=== PATIENT | male | born 1960 | race Caucasian/White ===

== ENCOUNTER 2020-04-21 16:46 | Emergency (ER) | payer OTHER ==
[2020-04-21] MEDS ORDERED: Acetaminophen 500 MG Tab PO ONE (18:42)
[2020-04-21] MEDS ORDERED: Aspirin 81 MG Tab.Chew PO ONE (18:43)
--- NOTE | 2020-04-21 19:12 | EDM.PDOC ---
ED HPI GENERAL MEDICAL PROBLEM - General Chief Complaint: Respiratory Problem Stated Complaint: MEDICAL Time Seen by Provider: 04/21/20 18:45 Source of Information: Reports: Patient, RN. Denies: Old Records History Limitations: Reports: Other (no old records) - History of Present Illness INITIAL COMMENTS - FREE TEXT/NARRATIVE: 59 yo male on methotrexate for psoriatic arthritis presents with PINA and a dry cough with deep inspiration of recent onset. Has known for a few days now through Dr. Hall's office that he has Covid-19 as does his . He has been running a fever for most of this time, his last acetaminophen was this morning. He does not need a work excuse. Onset: Gradual Onset Date: 04/13/20 Duration: Week(s): (1+), Getting Worse Location: Reports: Chest (SOB) Quality: Reports: Other (no pain) Severity: Mild Improves with: Reports: Rest Worsens with: Reports: Movement Context: Reports: Other (See HPI) Associated Symptoms: Reports: Cough, Fever/Chills, Malaise, Shortness of Breath. 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) - Related Data Allergies Allergy/AdvReac Type Severity Reaction Status Date / Time acetaminophen [From Lortab] Allergy Other Verified 04/21/20 17:54 codeine Allergy Rash Verified 04/21/20 17:54 [From Tylenol-Codeine] hydrocodone [From Lortab] Allergy Other Verified 04/21/20 17:54 Home Meds: Home Meds Clobetasol [Clobetasol 0.05%] 1 dose TOP BID 04/21/20 [History] Folic Acid 2 tab PO DAILY 04/21/20 [History] Meloxicam 15 mg PO DAILY 04/21/20 [History] Methotrexate 2.5 mg PO Q7D 04/21/20 [History] cephALEXin [Cephalexin] 500 mg PO DAILY 04/21/20 [History] traMADol [Ultram] 50 mg PO Q6HR PRN 04/21/20 [History] Past Medical History HEENT History: Reports: Impaired Vision Respiratory History: Reports: Other (See Below) Other Respiratory History: scare tissue in lungs hard to breath at times Musculoskeletal History: Reports: None Endocrine/Metabolic History: Reports: Obesity/BMI 30+ Dermatologic History: Reports: Psoriasis - Infectious Disease History Infectious Disease History: Reports: Chicken Pox, Influenza, Novel Coronavirus - Past Surgical History Head Surgeries/Procedures: Reports: None HEENT Surgical History: Reports: None Respiratory Surgical History: Reports: None Musculoskeletal Surgical History: Reports: Arthroscopic Knee, Hip Replacement, Knee Replacement, Other (See Below) Other Musculoskeletal Surgeries/Procedures:: left knee surgery Dermatological Surgical History: Reports: Skin Graft Social & Family History - Tobacco Use Tobacco Use Status *Q: Never Tobacco User Second Hand Smoke Exposure: No - Caffeine Use Caffeine Use: Reports: Soda - Alcohol Use Days Per Week of Alcohol Use: 1 Number of Drinks Per Day: 1 Total Drinks Per Week: 1 - Recreational Drug Use Recreational Drug Use: No ED ROS GENERAL - Review of Systems Review Of Systems: See Below Constitutional: Reports: Fever, Malaise HEENT: Reports: No Symptoms Respiratory: Reports: Shortness of Breath, Cough (dry). Denies: Wheezing, Pleuritic Chest Pain, Sputum, Hemoptysis Cardiovascular: Reports: No Symptoms Endocrine: Reports: No Symptoms GI/Abdominal: Reports: No Symptoms : Reports: No Symptoms Musculoskeletal: Reports: No Symptoms Skin: Reports: No Symptoms Neurological: Reports: No Symptoms ED EXAM, GENERAL - Physical Exam Exam: See Below Exam Limited By: No Limitations General Appearance: Alert, WD/WN, No Apparent Distress Eye Exam: Bilateral Eye: PERRL Ears: Normal External Exam, Normal Canal, Hearing Grossly Normal Ear Exam: Bilateral Ear: Auricle Normal, Canal Normal Nose: Normal Inspection, No Blood Throat/Mouth: Normal Inspection, Normal Lips, Normal Oropharynx, Normal Voice, No Airway Compromise Head: Atraumatic, Normocephalic Neck: Normal Inspection Respiratory/Chest: No Respiratory Distress, No Accessory Muscle Use, Crackles (very distant, fine crackles present) Cardiovascular: Regular Rate, Rhythm, No Edema GI/Abdominal: Normal Bowel Sounds, Soft, Non-Tender, No Distention Back Exam: Normal Inspection. No: CVA Tenderness (R), CVA Tenderness (L) Extremities: Normal Range of Motion, Non-Tender, No Pedal Edema. No: Normal Inspection Neurological: Alert, Oriented, CN II-XII Intact, Normal Cognition Psychiatric: Normal Affect, Normal Mood Skin Exam: Warm, Dry, Intact, Normal Color, No Rash Course - Vital Signs Last Recorded V/S: Last Vital Signs Temp 38.3 C H 04/21/20 17:38 Pulse 80 04/21/20 18:26 Resp 15 04/21/20 18:26 BP 121/67 04/21/20 18:26 Pulse Ox 96 04/21/20 18:26 - Orders/Labs/Meds Orders: Active Orders 24 hr Category Date Time Status Chest 1V Frontal [CR] Stat Exams 04/21/20 18:10 Taken Labs: Laboratory Tests 04/21/20 04/21/20 04/21/20 Range/Units 18:15 18:15 18:15 WBC 3.5 L (4.5-11.0) K/uL RBC 4.65 (4.30-5.90) M/uL Hgb 14.2 (12.0-15.0) g/dL Hct 42.7 (40.0-54.0) % MCV 92 (80-98) fL MCH 31 (27-31) pg MCHC 33 (32-36) % Plt Count 99 L (150-400) K/uL Neut % (Auto) 65 (36-66) % Lymph % (Auto) 22 L (24-44) % [place] % (Auto) 9 H (2-6) % Eos % (Auto) 5 H (2-4) % Baso % (Auto) 0 (0-1) % D-Dimer, Quantitative 610 H (0.0-400.0) ng/mL Sodium 136 L (140-148) mmol/L Potassium 3.9 (3.6-5.2) mmol/L Chloride 101 (100-108) mmol/L Carbon Dioxide 26 (21-32) mmol/L Anion Gap 12.9 (5.0-14.0) mmol/L BUN 12 (7-18) mg/dL Creatinine 1.3 (0.8-1.3) mg/dL Est Cr Clr Drug Dosing 64.73 mL/min Estimated GFR (MDRD) 57 L (>60) Glucose 105 (74-106) mg/dL Calcium 8.2 L (8.5-10.1) mg/dL Total Bilirubin 0.5 (0.2-1.0) mg/dL AST 43 H (15-37) U/L ALT 40 (12-78) U/L Alkaline Phosphatase 78 (46-116) U/L C-Reactive Protein 3.15 H (0.0-0.3) mg/dL Total Protein 7.2 (6.4-8.2) g/dL Albumin 3.5 (3.4-5.0) g/dL Globulin 3.7 H (2.3-3.5) g/dL Albumin/Globulin Ratio 1.0 L (1.2-2.2) Meds: Medications Discontinued Medications Generic Name Dose Route Start Last Admin Trade Name Martina PRN Reason Stop Dose Admin Acetaminophen 1,000 mg 04/21/20 18:42 04/21/20 18:51 Tylenol Extra Strength PO 04/21/20 18:43 1,000 mg ONETIME ONE Administration Aspirin 324 mg 04/21/20 18:43 04/21/20 18:50 Aspirin PO 04/21/20 18:44 324 mg ONETIME ONE Administration Departure - Departure Time of Disposition: 19:12 Disposition: Home, Self-Care 01 Condition: Fair Clinical Impression: COVID-19, PINA (dyspnea on exertion) - Discharge Information *PRESCRIPTION DRUG MONITORING PROGRAM REVIEWED*: Not Applicable *COPY OF PRESCRIPTION DRUG MONITORING REPORT IN PATIENT CHARO: Not Applicable Instructions: COVID-19 Frequently Asked Questions, Prevent the Spread of COVID- 19 if You Are Sick - [facility] [place] Referrals: PCP,None [Primary Care Provider] - Forms: ED Department Discharge Additional Instructions: Take about 4000 IU of vitamin D daily. Take Zinc about 25 mg daily or 50 mg every other day. Take an aspirin tablet daily with food. Hold your meloxicam while ill and substitute acetaminophen 1000 mg every 6 hrs for fever and pain control. Stay in touch with Dr. Hall regarding your progress. Drink enough fluids so your urine is very light yellow in color. Continue to quarantine to prevent the spread of this illness. Sepsis Event Note (ED) - Evaluation Sepsis Screening Result: No Definite Risk - Focused Exam Vital Signs: Vital Signs Temp Pulse Resp BP Pulse Ox 04/21/20 18:26 80 15 121/67 96 04/21/20 17:56 81 20 118/64 96 04/21/20 17:38 38.3 C H 84 18 132/68 95
--- NOTE | 2020-04-22 09:20 | CR ---
CHEST: Portable 04/21/2020 at 6:30 PM CLINICAL HISTORY:Covid 19 COMPARISON:None FINDINGS: The heart size, pulmonary vascularity and hilar structures are normal. There is some faint patchy density in the left lung base. This may represents minimal infiltrate or patchy atelectasis IMPRESSION: Minimal left lung base density may represent some minimal patchy atelectasis or infiltrate
== END 2020-04-21 19:36 | disposition home or self-care (01) ==
LOC: JP.ED 16:46
DX: U07.1 COVID-19 (principal); E66.9 Obesity, unspecified; Z68.34 Body mass index [BMI] 34.0-34.9, adult; Z88.6 Allergy status to analgesic agent; Z88.5 Allergy status to narcotic agent
CPT/HCPCS: 36415; 71045; 80053; 85025; 85379; 86140; 99283; A9270

== ENCOUNTER 2020-04-26 05:06 | Emergency (ER) | payer OTHER ==
[2020-04-26] MEDS ORDERED: Dexamethasone 4 MG Tab PO STA (05:49)
--- NOTE | 2020-04-26 05:54 | EDM.PDOC ---
<OfficerAnders - Last Filed: 04/26/20 05:51> ED HPI GENERAL MEDICAL PROBLEM - General Chief Complaint: Respiratory Problem Stated Complaint: COVID Time Seen by Provider: 04/26/20 05:36 Source of Information: Reports: Patient, RN Notes Reviewed History Limitations: Reports: No Limitations - History of Present Illness INITIAL COMMENTS - FREE TEXT/NARRATIVE: 59-year-old gentleman presents emergency department a complaint of shortness of breath, he was diagnosed positive COVID-19 on April 16, he states over the last couple days he has been progressively getting worse with symptoms reported to the emergency department today for further evaluation found to be hypoxic. He does also describe some chest pressure, no nausea or vomiting no sputum production - Related Data Allergies Allergy/AdvReac Type Severity Reaction Status Date / Time acetaminophen [From Lortab] Allergy Other Verified 04/26/20 05:13 codeine Allergy Rash Verified 04/26/20 05:13 [From Tylenol-Codeine] hydrocodone [From Lortab] Allergy Other Verified 04/26/20 05:13 Home Meds: Home Meds Clobetasol [Clobetasol 0.05%] 1 dose TOP BID 04/21/20 [History] Folic Acid 2 tab PO DAILY 04/21/20 [History] Methotrexate 2.5 mg PO Q7D 04/21/20 [History] cephALEXin [Cephalexin] 500 mg PO DAILY 04/21/20 [History] traMADol [Ultram] 50 mg PO Q6HR PRN 04/21/20 [History] Acetaminophen [Tylenol] 2 tab PO Q6H 04/26/20 [History] Aspirin 1 tab PO DAILY 04/26/20 [History] Azithromycin 2 tab PO ASDIRECTED 04/26/20 [History] Past Medical History HEENT History: Reports: Impaired Vision Respiratory History: Reports: Other (See Below) Other Respiratory History: scare tissue in lungs hard to breath at times Endocrine/Metabolic History: Reports: Obesity/BMI 30+ Dermatologic History: Reports: Psoriasis - Infectious Disease History Infectious Disease History: Reports: Chicken Pox - Past Surgical History Head Surgeries/Procedures: Reports: None HEENT Surgical History: Reports: None Respiratory Surgical History: Reports: None Musculoskeletal Surgical History: Reports: Arthroscopic Knee, Hip Replacement, Knee Replacement, Other (See Below) Other Musculoskeletal Surgeries/Procedures:: left knee surgery Dermatological Surgical History: Reports: Skin Graft Social & Family History - Family History Family Medical History: Noncontributory - Tobacco Use Tobacco Use Status *Q: Never Tobacco User - Caffeine Use Caffeine Use: Reports: Soda - Recreational Drug Use Recreational Drug Use: No ED ROS GENERAL - Review of Systems Review Of Systems: See Below Constitutional: Reports: Fever, Chills, Weakness HEENT: Reports: No Symptoms Respiratory: Reports: Shortness of Breath. Denies: Wheezing, Sputum Cardiovascular: Reports: Chest Pain, Dyspnea on Exertion GI/Abdominal: Reports: No Symptoms : Reports: No Symptoms ED EXAM, GENERAL - Physical Exam Exam: See Below Exam Limited By: No Limitations General Appearance: Alert, WD/WN, No Apparent Distress Respiratory/Chest: No Respiratory Distress, Chest Non-Tender, Rhonchi, Wheezing Cardiovascular: Regular Rate, Rhythm, No Murmur Departure - Departure Disposition: DC/Tfer to Other Clinical Impression: COVID-19, Pneumonia due to COVID-19 virus - Discharge Information Referrals: PCP,None [Primary Care Provider] - Forms: ED Department Discharge Care Plan Goals: Patient will be transferred to [facility] for inpatient evaluation and treatment for worsening COVID-19 pneumonia and hypoxia. Sepsis Event Note (ED) - Evaluation Sepsis Screening Result: No Definite Risk <Jose D Alford - Last Filed: 04/26/20 09:48> Course - Vital Signs Last Recorded V/S: Last Vital Signs Temp 99.3 F 04/26/20 08:32 Pulse 75 04/26/20 08:24 Resp 20 04/26/20 08:24 BP 109/66 04/26/20 08:24 Pulse Ox 96 04/26/20 08:24 - Orders/Labs/Meds Orders: Active Orders 24 hr Category Date Time Status Chest 1V Frontal [CR] Stat Exams 04/26/20 05:50 Taken Isolation [COMM] Stat Oth 04/26/20 05:49 Ordered Labs: Laboratory Tests 04/26/20 04/26/20 04/26/20 Range/Units 05:49 06:20 06:20 WBC (4.5-11.0) K/uL RBC (4.30-5.90) M/uL Hgb (12.0-15.0) g/dL Hct (40.0-54.0) % MCV (80-98) fL MCH (27-31) pg MCHC (32-36) % Plt Count (150-400) K/uL Neut % (Auto) (36-66) % Lymph % (Auto) (24-44) % [place] % (Auto) (2-6) % Eos % (Auto) (2-4) % Baso % (Auto) (0-1) % PT (9.5-12.0) sec INR (0.80-1.20) APTT 29.5 (27.0-36.0) sec D-Dimer, Quantitative (0.0-400.0) ng/mL Puncture Site Lt radial ABG pH 7.445 (7.350-7.450) ABG pCO2 36.2 (35.0-42.0) mmHg ABG pO2 37.9 L* (75.0-100.0) mmHg ABG HCO3 24.5 (22.0-26.0) mmol/L ABG Total CO2 21.6 L (23.0-27.0) mmol/L ABG O2 Saturation 74.1 L (95.0-98.0) % ABG O2 Content 13.6 L (15.0-23.0) %vol ABG Base Excess 1.2 mm/L ABG Hemoglobin 13.7 (13.5-18.0) g/dL ABG Oxyhemoglobin 71.1 % ABG Carboxyhemoglobin 3.2 H (0.0-1.6) % ABG Methemoglobin 0.9 % Wild Test Passed O2 Delivery Device Nasal cannula Oxygen Flow Rate 2.0 L Sodium (140-148) mmol/L Potassium (3.6-5.2) mmol/L Chloride (100-108) mmol/L Carbon Dioxide (21-32) mmol/L Anion Gap (5.0-14.0) mmol/L BUN (7-18) mg/dL Creatinine (0.8-1.3) mg/dL Est Cr Clr Drug Dosing mL/min Estimated GFR (MDRD) (>60) Glucose (74-106) mg/dL Lactic Acid (0.4-2.0) mmol/L Calcium (8.5-10.1) mg/dL Ferritin 3262 H (8-388) ng/ml Total Bilirubin (0.2-1.0) mg/dL Direct Bilirubin (0.0-0.2) mg/dL Indirect Bilirubin AST (15-37) U/L ALT (12-78) U/L Alkaline Phosphatase (46-116) U/L Lactate Dehydrogenase (85-227) U/L Troponin I (0.000-0.056) ng/mL C-Reactive Protein (0.0-0.3) mg/dL Total Protein (6.4-8.2) g/dL Albumin (3.4-5.0) g/dL Globulin (2.3-3.5) g/dL Albumin/Globulin Ratio (1.2-2.2) Procalcitonin ng/mL 04/26/20 04/26/20 04/26/20 Range/Units 06:20 06:20 06:20 WBC 3.2 L (4.5-11.0) K/uL RBC 4.51 (4.30-5.90) M/uL Hgb 14.0 (12.0-15.0) g/dL Hct 41.4 (40.0-54.0) % MCV 92 (80-98) fL MCH 31 (27-31) pg MCHC 34 (32-36) % Plt Count 133 L (150-400) K/uL Neut % (Auto) 68 H (36-66) % Lymph % (Auto) 19 L (24-44) % [place] % (Auto) 13 H (2-6) % Eos % (Auto) 0 L (2-4) % Baso % (Auto) 0 (0-1) % PT (9.5-12.0) sec INR (0.80-1.20) APTT (27.0-36.0) sec D-Dimer, Quantitative 948 H (0.0-400.0) ng/mL Puncture Site ABG pH (7.350-7.450) ABG pCO2 (35.0-42.0) mmHg ABG pO2 (75.0-100.0) mmHg ABG HCO3 (22.0-26.0) mmol/L ABG Total CO2 (23.0-27.0) mmol/L ABG O2 Saturation (95.0-98.0) % ABG O2 Content (15.0-23.0) %vol ABG Base Excess mm/L ABG Hemoglobin (13.5-18.0) g/dL ABG Oxyhemoglobin % ABG Carboxyhemoglobin (0.0-1.6) % ABG Methemoglobin % Wild Test O2 Delivery Device Oxygen Flow Rate L Sodium 135 L (140-148) mmol/L Potassium 3.6 (3.6-5.2) mmol/L Chloride 100 (100-108) mmol/L Carbon Dioxide 25 (21-32) mmol/L Anion Gap 13.6 (5.0-14.0) mmol/L BUN 12 (7-18) mg/dL Creatinine 1.2 (0.8-1.3) mg/dL Est Cr Clr Drug Dosing 70.13 mL/min Estimated GFR (MDRD) > 60 (>60) Glucose 97 (74-106) mg/dL Lactic Acid (0.4-2.0) mmol/L Calcium 8.4 L (8.5-10.1) mg/dL Ferritin (8-388) ng/ml Total Bilirubin 0.6 (0.2-1.0) mg/dL Direct Bilirubin 0.22 H (0.0-0.2) mg/dL Indirect Bilirubin 0.38 AST 124 H D (15-37) U/L ALT 85 H (12-78) U/L Alkaline Phosphatase 85 (46-116) U/L Lactate Dehydrogenase 423 H (85-227) U/L Troponin I (0.000-0.056) ng/mL C-Reactive Protein 3.63 H (0.0-0.3) mg/dL Total Protein 6.9 (6.4-8.2) g/dL Albumin 3.1 L (3.4-5.0) g/dL Globulin 3.8 H (2.3-3.5) g/dL Albumin/Globulin Ratio 0.8 L (1.2-2.2) Procalcitonin ng/mL 04/26/20 04/26/20 04/26/20 Range/Units 06:20 06:20 06:20 WBC (4.5-11.0) K/uL RBC (4.30-5.90) M/uL Hgb (12.0-15.0) g/dL Hct (40.0-54.0) % MCV (80-98) fL MCH (27-31) pg MCHC (32-36) % Plt Count (150-400) K/uL Neut % (Auto) (36-66) % Lymph % (Auto) (24-44) % [place] % (Auto) (2-6) % Eos % (Auto) (2-4) % Baso % (Auto) (0-1) % PT 11.4 (9.5-12.0) sec INR 1.05 (0.80-1.20) APTT (27.0-36.0) sec D-Dimer, Quantitative (0.0-400.0) ng/mL Puncture Site ABG pH (7.350-7.450) ABG pCO2 (35.0-42.0) mmHg ABG pO2 (75.0-100.0) mmHg ABG HCO3 (22.0-26.0) mmol/L ABG Total CO2 (23.0-27.0) mmol/L ABG O2 Saturation (95.0-98.0) % ABG O2 Content (15.0-23.0) %vol ABG Base Excess mm/L ABG Hemoglobin (13.5-18.0) g/dL ABG Oxyhemoglobin % ABG Carboxyhemoglobin (0.0-1.6) % ABG Methemoglobin % Wild Test O2 Delivery Device Oxygen Flow Rate L Sodium (140-148) mmol/L Potassium (3.6-5.2) mmol/L Chloride (100-108) mmol/L Carbon Dioxide (21-32) mmol/L Anion Gap (5.0-14.0) mmol/L BUN (7-18) mg/dL Creatinine (0.8-1.3) mg/dL Est Cr Clr Drug Dosing mL/min Estimated GFR (MDRD) (>60) Glucose (74-106) mg/dL Lactic Acid 1.3 (0.4-2.0) mmol/L Calcium (8.5-10.1) mg/dL Ferritin (8-388) ng/ml Total Bilirubin (0.2-1.0) mg/dL Direct Bilirubin (0.0-0.2) mg/dL Indirect Bilirubin AST (15-37) U/L ALT (12-78) U/L Alkaline Phosphatase (46-116) U/L Lactate Dehydrogenase (85-227) U/L Troponin I (0.000-0.056) ng/mL C-Reactive Protein (0.0-0.3) mg/dL Total Protein (6.4-8.2) g/dL Albumin (3.4-5.0) g/dL Globulin (2.3-3.5) g/dL Albumin/Globulin Ratio (1.2-2.2) Procalcitonin 0.61 ng/mL 04/26/20 Range/Units 06:20 WBC (4.5-11.0) K/uL RBC (4.30-5.90) M/uL Hgb (12.0-15.0) g/dL Hct (40.0-54.0) % MCV (80-98) fL MCH (27-31) pg MCHC (32-36) % Plt Count (150-400) K/uL Neut % (Auto) (36-66) % Lymph % (Auto) (24-44) % [place] % (Auto) (2-6) % Eos % (Auto) (2-4) % Baso % (Auto) (0-1) % PT (9.5-12.0) sec INR (0.80-1.20) APTT (27.0-36.0) sec D-Dimer, Quantitative (0.0-400.0) ng/mL Puncture Site ABG pH (7.350-7.450) ABG pCO2 (35.0-42.0) mmHg ABG pO2 (75.0-100.0) mmHg ABG HCO3 (22.0-26.0) mmol/L ABG Total CO2 (23.0-27.0) mmol/L ABG O2 Saturation (95.0-98.0) % ABG O2 Content (15.0-23.0) %vol ABG Base Excess mm/L ABG Hemoglobin (13.5-18.0) g/dL ABG Oxyhemoglobin % ABG Carboxyhemoglobin (0.0-1.6) % ABG Methemoglobin % Wild Test O2 Delivery Device Oxygen Flow Rate L Sodium (140-148) mmol/L Potassium (3.6-5.2) mmol/L Chloride (100-108) mmol/L Carbon Dioxide (21-32) mmol/L Anion Gap (5.0-14.0) mmol/L BUN (7-18) mg/dL Creatinine (0.8-1.3) mg/dL Est Cr Clr Drug Dosing mL/min Estimated GFR (MDRD) (>60) Glucose (74-106) mg/dL Lactic Acid (0.4-2.0) mmol/L Calcium (8.5-10.1) mg/dL Ferritin (8-388) ng/ml Total Bilirubin (0.2-1.0) mg/dL Direct Bilirubin (0.0-0.2) mg/dL Indirect Bilirubin AST (15-37) U/L ALT (12-78) U/L Alkaline Phosphatase (46-116) U/L Lactate Dehydrogenase (85-227) U/L Troponin I < 0.017 (0.000-0.056) ng/mL C-Reactive Protein (0.0-0.3) mg/dL Total Protein (6.4-8.2) g/dL Albumin (3.4-5.0) g/dL Globulin (2.3-3.5) g/dL Albumin/Globulin Ratio (1.2-2.2) Procalcitonin ng/mL Meds: Medications Discontinued Medications Generic Name Dose Route Start Last Admin Trade Name Freq PRN Reason Stop Dose Admin Dexamethasone 6 mg 04/26/20 05:49 04/26/20 06:32 Dexamethasone PO 04/26/20 05:50 6 mg NOW STA Administration Remdesivir 200 mg/ Sodium 250 mls @ 250 mls/hr 04/26/20 08:15 04/26/20 08:24 Chloride IV 04/26/20 09:14 250 mls/hr ONETIME ONE Administration - Re-Assessments/Exams Free Text/Narrative Re-Assessment/Exam: 04/26/20 07:52 Care turned over from Officer pending transfer disposition. Joyce Keller had a bed available on the Covid unit, Dr. Boyle kindly accepted the patient at 7:40 AM. Transfer was arranged. Departure - Departure Time of Disposition: 08:46 Sepsis Event Note (ED) - Focused Exam Vital Signs: Vital Signs Temp Pulse Resp BP Pulse Ox 04/26/20 08:32 99.3 F 04/26/20 08:24 75 20 109/66 96 04/26/20 07:52 68 112/64 93 L 04/26/20 06:34 74 18 95/58 L 93 L 04/26/20 05:18 97.6 F 75 18 122/65 88 L
--- NOTE | 2020-04-26 09:39 | CR ---
CHEST: Portable 04/26/2020 at 6:07 AM CLINICAL HISTORY:Covid positive COMPARISON:04/21/2020 FINDINGS: There are patchy bilateral pneumonic infiltrates which are new since prior study. Heart size and pulmonary vascularity are normal. IMPRESSION: New diffuse patchy bilateral pulmonary infiltrates.
== END 2020-04-26 08:46 | disposition other institution (70) ==
LOC: JP.ED 05:06
DX: U07.1 COVID-19 (principal); J12.89 Other viral pneumonia; E66.9 Obesity, unspecified; Z79.82 Long term (current) use of aspirin; Z68.34 Body mass index [BMI] 34.0-34.9, adult; Z88.6 Allergy status to analgesic agent; Z88.5 Allergy status to narcotic agent; Z79.899 Other long term (current) drug therapy
CPT/HCPCS: 36415; 36600; 71045; 80048; 80076; 82728; 82803; 83605; 83615; 84145; 84484; 85025; 85379; 85610; 85730; 86140; 96374; 99285; J7050; J8540